=== PATIENT | male | born 1980 | race Caucasian/White ===

== ENCOUNTER → 2023-06-29 07:33 | Outpatient (REF) | payer BC, SELFPAY | LOC: RAD 07:33 | PROVIDERS: ATTENDING PHYSICIAN Nurse Practitioner | DX: R16.0 Hepatomegaly, not elsewhere classified (principal) | CPT/HCPCS: 76700 ==

== ENCOUNTER 2024-08-20 20:36 | Emergency (ER) | payer BC, SELFPAY ==
[2024-08-20 20:37] VITALS: BP 182/127
[2024-08-20 20:42] VITALS: BP 155/124
[2024-08-20 21:12] LABS: % Basophils 0.5 % (0-2); % Eosinophils 5.4 % (0-6); % Immature Granulocytes 0.3 % (0-0.5); % Lymphocytes 18.7 % (20.5-51.1); % Monocytes 11.8 % (1.7-9.3); % Neutrophils 63.3 % (42.2-75.2); Absolute Eosinophils 0.4 10^3/uL (0-0.7); Absolute Lymphocytes 1.2 10^3/uL (1.2-3.4); Absolute Monocytes 0.8 10^3/uL (0.1-0.6); Absolute Neutrophils 4.1 10^3/uL (1.4-6.5); Hematocrit 39.6 % (39.0-52.0); Hemoglobin 14.7 g/dL (13.0-18.0); Mean Corp Hgb Conc. 37.1 g/dL (33.0-37.0); Mean Corpuscular Hgb 35.6 pg (27.0-31.0); Mean Corpuscular Volume 95.9 fL (80.0-94.0); Nucleated Red Blood Cells % 0 % (-); Platelet Count 204 10^3/uL (130-400); Red Blood Cell Count 4.13 10^6/uL (4.70-6.10); Red Cell Dist. Width 14.9 % (11.5-14.5); White Blood Cell Count 6.5 10^3/uL (4.8-10.8)
[2024-08-20 21:19] LABS: ALT (SGPT) 234 U/L (0-50); AST (SGOT) 268 U/L (17-59); Albumin 4.9 g/dl (3.5-5.0); Alkaline Phosphatase 103 U/L (38-126); Blood Urea Nitrogen 4 mg/dl (9-20); Calcium 10.1 mg/dl (8.4-10.2); Carbon Dioxide 26 mmol/L (22-30); Chloride 96 mmol/L (98-107); Glucose 82 mg/dl (70-99); Potassium 3.9 mmol/L (3.5-5.1); Sodium 134 mmol/L (135-145); Total Bilirubin 0.9 mg/dl (0.2-1.3); Total Protein 7.9 g/dl (6.3-8.2); eGFR > 60.00
[2024-08-20 21:44] VITALS: BP 149/100
[2024-08-20 22:00] VITALS: BP 161/98
--- NOTE | 2024-08-20 22:11 | ED.GENMED ---
History of Present Illness
General
Chief Complaint: Withdrawal Symptoms
Source: patient and spouse
Exam Limitations: none
Time Seen by Provider: 08/20/24 21:51
History of Present Illness
History of Present Illness:
See MDM
Past History
Past History
ED Past Medical History: Other (Bilateral avascular necrosis of the femoral heads, asthma, eczema)
ED Past Surgical History: Orthopedic
Social History
Tobacco: Smoker
Alcohol: Daily
Family History
Family History: Negative Diabetes or CAD
Phy Exam
Physical Exam
Physical Exam:
See MDM
Course
Orders/Labs/Results
Orders:
Orders
08/20/24 20:44
Electrocardiogram (*1) Urgent
Reason for Study: Hypertension, Benign
EKG- Treatment ONCE
08/20/24 21:00
Complete Blood Count/With Diff Urgent
Comprehensive Metabolic Panel Urgent
08/20/24 22:06
0.9% Sodium Chloride 1000 ml [Nss] 1,000 ml IV BOLUS
Ketorolac [Toradol] 30 mg IV NOW STA
Lorazepam [Ativan] 1 mg IV NOW STA
08/20/24 22:43
Ibuprofen [Motrin] 600 mg PO NOW STA
Lorazepam [Ativan] 1 mg PO NOW STA
Abnormal Lab Results
08/20/24
21:00
RBC 4.13 L 10^6/uL
(4.70-6.10)
MCV 95.9 H fL
(80.0-94.0)
MCH 35.6 H pg
(27.0-31.0)
MCHC 37.1 H g/dL
(33.0-37.0)
RDW 14.9 H %
(11.5-14.5)
Absolute Monos (auto) 0.8 H 10^3/uL
(0.1-0.6)
Lymphocytes % 18.7 L %
(20.5-51.1)
Monocytes % 11.8 H %
(1.7-9.3)
Sodium 134 L mmol/L
(135-145)
Chloride 96 L mmol/L
(98-107)
BUN 4 L mg/dl
(9-20)
Creatinine 0.6 L mg/dL
(0.7-1.3)
AST 268 H U/L
(17-59)
ALT 234 H U/L
(0-50)
08/20/24 21:00
08/20/24 21:00
Vital Signs
Initial and Last Documented VS:
Initial Vital Signs
Pulse Resp BP Pulse Ox
90 18 182/127 93
08/20/24 20:37 08/20/24 20:37 08/20/24 20:37 08/20/24 20:37
Last Documented Vital Signs
Temp Pulse Resp BP Pulse Ox
98.1 F 95 8 161/98 95
08/20/24 20:42 08/20/24 22:30 08/20/24 22:30 08/20/24 22:00 08/20/24 22:30
MDM/Problems Addressed
Differential Diagnosis Includes:
HPI and MDM Narrative:
43-year-old male presenting for evaluation of alcohol withdrawal. Patient does acknowledge that he drinks too much alcohol. Because of this, patient is changing pain from vodka to beer. He states he drinks about 15 beers a day. His last drink
was this afternoon. He has been dealing with a migraine headache so he went to urgent care. After hearing that there is high concern for alcohol withdrawal seizure in the emergency department. His is at bedside. Patient is clinically
dehydrated. He does acknowledge that he does not drink much water. He drinks mostly coffee and beers.
Physical exam
General: Well appearing and non-toxic
HEENT: protecting airway. Mild dry mucous membranes
Neck: appears supple
CV: No evidence of cyanosis
Resp: No accessory muscle use
Abd: Non-distended
Extremities: No deformities
Neuro: alert
Psych: Normal affect
Skin: Intact
Problems Addressed including Acute and Chronic Conditions affecting care:
1. Alcohol withdrawal
Acuity: acute
Prognosis: stable
Details: Patient is not tachycardic. He is calm. Will have [facility] evaluate
Updates
Patient states he no longer wants to speak to be cares. He is comfortable with an Ativan prescription and will talk to his doctor about outpatient resources. We discussed his elevated LFTs
Differential Diagnosis (but not limited to): Alcohol withdrawal, alcohol use disorder
Testing considered: Alcohol level
Drug therapy (if applicable): OTC meds, please see d/c instruction regarding Rx drugs
Amount and/or Complexity of Data Reviewed
Clinical info obtained from: Patient
External data reviewed: N/A
Labs I independently reviewed (but not limited to): Elevated LFTs
Radiology: N/A
Pulse Ox: not hypoxic
EKG independently reviewed: sinus rhythm, normal axis, no STEMI
Food Service Helper: Sinus rhythm
Critical Care: N/A
Risk of Complication:
Social Determinants of health: Good social support
Discussed with other providers: N/A
Escalation of Care includes Admit/Obs: After being observed in the Emergency Department, pt stable for discharge.
Occasional wrong word or 'sound a like' substitutions may have occurred due to the inherent limitations of voice recognition software. Read the chart carefully and recognize, using context, where substitutions have occurred.
*Critical Care Note
Total Time (30-74mins, 75-104mins- exclusive of procedures): Not Applicable
ED Attending Note
-
Portions of this chart may have been created with voice recognition software.� Occasional wrong word or��sound alike� substitutions may have occurred due to the inherent limitations of voice recognition software.
Discharge Plan
Departure
Discharge Problem:
Alcohol withdrawal
Instructions: Alcohol Use Disorder (DC)
Prescriptions:
New
lorazepam [Ativan] 1 mg tablet
1 mg PO TID PRN (Reason: alcohol withdrawal) Qty: 20 0RF
No Action
Albuterol Sulfate Hfa
2 puff inhalation Q4H PRN (Reason: sob)
Symbicort 160/4.5 Mcg Inhaler:
1 puff inhalation BID
Triamcinolone Cream
1 applic topical Q12H
thiamine HCl (vitamin B1) 100 MG tablet
100 mg PO BID 0RF
folic acid 1 MG tablet
1 mg PO DAILY 0RF
cephalexin 500 MG tablet
500 mg PO TID Qty: 21 0RF
Referrals:
Albina Be CRNP [Family Provider] -
Activity Restrictions/Additional Instructions:
Please return for any worsening symptoms.
You may return at any time if you have further concerns.
Please follow up with your doctor at the first available appointment, preferably this week.
Interventions
Interventions:
*Risk Screen - Suicide Last Done: 08/20/24 20:41
*General Assessment Last Done: 08/20/24 20:41
*Neglect/Abuse Screening Last Done: 08/20/24 20:41
*ED COVID-19 Vaccine History Last Done: 08/20/24 20:41
ED- Neurological Assessment Last Done: 08/20/24 21:45
ED-Psychological Assessment Last Done: 08/20/24 21:45
Discharge Date and Time
Print Language: LAO
[2024-08-20] MEDS: MOTRIN 600 MG PO (22:47)
[2024-08-20] MEDS: ATIVAN 1 MG PO (22:47)
[2024-08-20 22:48] VITALS: BP 160/105
== END 2024-08-20 22:55 | disposition home or self-care (01) ==
LOC: EMR 20:36
PROVIDERS: EMERGENCY PHYSICIAN Student in an Organized Health Care Education/Training Program; FAMILY PHYSICIAN Nurse Practitioner
DX: F10.239 Alcohol dependence with withdrawal, unspecified (principal); Y90.9 Presence of alcohol in blood, level not specified; F17.200 Nicotine dependence, unspecified, uncomplicated; J45.909 Unspecified asthma, uncomplicated
CPT/HCPCS: 99284; 80053; 85025; 93005